=== PATIENT | male | born 1945 ===

== ENCOUNTER 2017-12-14 11:05 | Emergency (ER) | payer SELFPAY ==
[2017-12-14 11:46] VITALS: BP 146/81; PULSE 63; RESP 18; TEMP 98; O2SAT 100
--- NOTE | 2017-12-14 14:04 | CT ---
EXAM: CT Lumbar Spine Without Intravenous Contrast CLINICAL HISTORY: 72 years old, male; Pain; Low back pain; Prior surgery; Surgery date: 6+ months; Surgery type: Appendix removal TECHNIQUE: Axial computed tomography images of the lumbar spine without intravenous contrast. All CT scans at this facility use one or more dose reduction techniques, viz.: automated exposure control; ma/kV adjustment per patient size (including targeted exams where dose is matched to indication; i.e. head); or iterative reconstruction technique. 481 images are submitted.Sagittal , axial and coronal MPR reformatted images are submitted in soft tissue and bone windows. COMPARISON: No relevant prior studies available. FINDINGS: Vertebrae: Unremarkable. No acute fracture. Discs/spinal canal/neural foramina: Degenerative changes. T11-T12: Unremarkable. T12-L1: Unremarkable. L1-L2: Unremarkable. L2-L3: Unremarkable. L3-L4: Unremarkable. L4-L5: There is moderate diffuse disc bulge with ligamentum flavum hypertrophy and moderate to severe spinal stenosis seen on image 67 series 3. Bilateral facet arthritis. Narrowing of bilateral subarticular recess and neural foramen. L5-S1: There is mild disc bulge. Soft tissues: Unremarkable. Vasculature: The aorta demonstrates calcified plaque and is mildly ectatic but normal in caliber. Adrenals: Normal adrenal glands. Kidneys and ureters: Nonobstructive bilateral renal stones measuring 3-4 mm. IMPRESSION: 1. Nonobstructive bilateral renal stones measuring 3-4 mm. 2. Moderate to severe degenerative disc disease at L4-5 level as described.
--- NOTE | 2017-12-14 14:38 | ED PDOC ---
HPI: Back Time Seen by Provider: 12/14/17 11:52 Chief Complaint (Nursing): Back Pain Chief Complaint (Provider): Low back pain, radiates down right leg History Per: Patient History/Exam Limitations: no limitations Onset/Duration Of Symptoms: Days (2 weeks ) Current Symptoms Are (Timing): Still Present Full Body Front + Back: 1 - Pain Quality Of Discomfort: Sharp (with movement ) Severity: Moderate Pain Scale Rating Of: 9 Previous Symptoms: None Associated Symptoms: None Additional Complaint(s): No previous episodes of back pain. no numbness/tingling. No bowel or bladder incontinence. No similar in the past. Past Medical History Reviewed: Historical Data, Nursing Documentation, Vital Signs Vital Signs: Last Vital Signs Temp 98 F 12/14/17 11:43 Pulse 63 12/14/17 11:43 Resp 18 12/14/17 11:43 BP 146/81 12/14/17 11:43 Pulse Ox 100 12/14/17 11:43 - Medical History PMH: HTN - Surgical History Surgical History: No Surg Hx - Family History Family History: States: No Known Family Hx - Living Arrangements Living Arrangements: With Family - Social History Current smoker - smoking cessation education provided: No - Immunization History Hx Tetanus Toxoid Vaccination: No - Home Medications Home Medications: Ambulatory Orders Medication Instructions Recorded Cyclobenzaprine HCl 5 mg PO Q8H #30 tablet 12/14/17 Naproxen [Naprosyn] 500 mg PO BID PRN #20 tablet 12/14/17 - Allergies Allergies/Adverse Reactions: Allergies Allergy/AdvReac Type Severity Reaction Status Date / Time No Known Allergies Allergy Verified 12/14/17 11:46 Review of Systems ROS Statement: Except As Marked, All Systems Reviewed And Found Negative Constitutional: Negative for: Fever, Chills ENT: Negative for: Ear Pain, Ear Discharge Genitourinary Male: Negative for: Dysuria, Frequency, Hematuria, Penile Discharge, Penile Pain Musculoskeletal: Positive for: Back Pain Skin: Negative for: Rash Neurological: Negative for: Weakness, Numbness Physical Exam - Reviewed Nursing Documentation Reviewed: Yes Vital Signs Reviewed: Yes - Physical Exam Appears: Positive for: Well, Non-toxic, No Acute Distress Head Exam: Positive for: ATRAUMATIC, NORMAL INSPECTION, NORMOCEPHALIC Skin: Positive for: Normal Color, Warm, DRY Eye Exam: Positive for: Normal appearance ENT: Positive for: Normal ENT Inspection Neck: Positive for: Normal, Painless ROM Cardiovascular/Chest: Positive for: Regular Rate, Rhythm Respiratory: Positive for: Normal Breath Sounds. Negative for: Accessory Muscle Use, Respiratory Distress Back: Positive for: Normal Inspection Extremity: Positive for: Normal ROM. Negative for: Tenderness Neurologic/Psych: Positive for: Alert, Oriented - ECG O2 Sat by Pulse Oximetry: 100 Medical Decision Making Medical Decision Making: Pt reports feeling better on re-evaluation. Discussed CT report, and f/u with PMD for possible PT. Also discussed medications for pain. Copy of reports given to patients. Pts PMD is in the clinic. Disposition - Clinical Impression Clinical Impression: Sciatica - Patient ED Disposition Is Patient to be Admitted: No Counseled Patient/Family Regarding: Diagnosis, Need For Followup, Rx Given - Disposition Disposition: Routine/Home Disposition Time: 14:36 Condition: GOOD Prescriptions: Cyclobenzaprine HCl 5 mg PO Q8H #30 tablet Naproxen [Naprosyn] 500 mg PO BID PRN #20 tablet PRN Reason: Pain Instructions: Sciatica (ED) Print Language: ROMANIAN
== END 2017-12-14 15:02 | disposition home or self-care (01) ==
LOC: H.ER 11:05
DX: M54.31 Sciatica, right side (principal); I10 Essential (primary) hypertension